=== PATIENT | female | born 2000 | race Caucasian/White ===

== ENCOUNTER 2022-01-05 21:25 | Outpatient (CLI) | payer OTHER ==
[~2022-01-05] VITALS: Ht 162.6 cm; Wt 71.8 kg
--- NOTE | 2022-01-05 21:35 | NUR ---
G1L0. 38-3. To LR 5 with spouse. Clean gown on. EFM and TOCO explained and applied. Pt states she was walking her dog tonight and was going up stairs in her hotel when her dog pulled her and she fell on her abdomen. Pt reports trying to not hit her abdomen so she fell to her knees but then hit her stomach on the stairs. Pt reports "feeling more sore on her left side of abdomen." Denies contractions, leaking of fluids or vaginal bleeding. Reports good movement. Pt states they are and in the process of moving and fighting with insurance so they have not gotten an OB in [place] yet. Pt reports she has her medical records in car. Requested FOB to get paperwork. Pt states her due date is 01/16/22. Denies any complications other then bleeding in her first trimester. Reports no BP issues, GBS -, not GDM. Plan of care explained to pt and spouse who verbalize their understanding. 2310: Pt continues to deny contractions at this time.
[2022-01-05 22:00] VITALS: BP 127/78; PULSE 81; TEMP 98.2
[2022-01-05 22:30] VITALS: BP 108/66; PULSE 74
[2022-01-05 23:00] VITALS: BP 111/67; PULSE 69
[2022-01-05 23:30] VITALS: BP 106/59; PULSE 76
--- NOTE | 2022-01-05 23:40 | NUR ---
reviews FHR strip at nurses station. Orders received to watch till 5140-4024. Pt educated on new plan of care received. Pt verbalizes her understanding.
--- NOTE | 2022-01-05 23:52 | NUR ---
reviews FHR strip. Okay to discharge home at 0015 per provider. 0023: Pt off monitors. Denies feeling contractions and pain. "Just sore." Pt to change clothes.
[2022-01-06] VITALS: BP 104/57; PULSE 70
[2022-01-06 00:23] VITALS: BP 104/59; PULSE 78
--- NOTE | 2022-01-06 00:40 | NUR ---
Discharge education given to pt and spouse who verbalize their understanding. Denies questions. Pt ambulatory off unit and home with spouse.
== END 2022-01-06 00:40 | disposition home or self-care (01) ==
LOC: LDRO 21:25
DX: O9A.219 Injury, poisoning and certain other consequences of external causes complicating pregnancy, unspecified trimester (principal); Z3A.00 Weeks of gestation of pregnancy not specified

== ENCOUNTER 2022-01-06 09:28 | Outpatient (CLI) | payer OTHER ==
[~2022-01-06] VITALS: Ht 162.6 cm; Wt 71.7 kg
--- NOTE | 2022-01-06 09:30 | NUR ---
0930 - PATIENT AMBULATORY TO [facility] FOR NST. PATIENT REPORTS A FALL LAST NIGHT. DENIES FALLING ON BELLY. PATIENT REPORTS GOOD MOVEMENT LAST NIGHT AND TODAY. DENIES LEAKING OF FLUID OR BLOODY SHOW. PATIENT DENIES FEELING ANY CONTRACTIONS. PATIENT IS NOT ESTABLISHED PATIENT OF [facility]. PATIENT STATES SHE JUST MOVED HERE FROM [place]. 6349 - PLAN OF CARE DISCUSSED. PATIENT ON MONITOR. CARE ONGOING.
--- NOTE | 2022-01-06 12:25 | NUR ---
Dr. Trent on the unit. FHR tracing reviewed. Ok for discharge home after pt receives her Rhogam.
--- NOTE | 2022-01-06 12:30 | NUR ---
Rhogam given, see EMAR for details. Discharge instructions reviewed with pt. Encouraged pt to follow up with and see an OB. Pt verbalized an understanding, agreed with the plan and states no questions or concerns at this time.
== END 2022-01-06 12:40 | disposition home or self-care (01) ==
LOC: LDRO 09:28
DX: O9A.213 Injury, poisoning and certain other consequences of external causes complicating pregnancy, third trimester (principal); Z3A.38 38 weeks gestation of pregnancy
CPT/HCPCS: J2791

== ENCOUNTER 2022-01-16 19:38 | Outpatient (CLI) | payer OTHER ==
--- NOTE | 2022-01-16 19:45 | NUR ---
G1 at 40 weeks arrives to unit with complaint of decreased movement. Pt reports feeling small movements over the last hour but she usually feels more movement in the evenings after meals. Pt denies contractions, vaginal bleeding, or leakage of fluid. Denies headache, blurry vision, or RUQ pain. Pt recently moved here from [place] and has not established care at [facility] but plans on delivering here. Pt had a fall around 38 weeks and was seen on our unit for extended monitoring, prenatals from [place] obtained at this time and available on unit. Uncomplicated . GBS -. Pt oriented to room, call light within reach, bed in low and locked position. Clean gown on. Palpated abdomen and able to feel baby move, patient reports feeling movement as well. US and toco explained and applied. Vitals obtained. Admission assessment completed. SVE closed/thick/high.
[2022-01-16 20:00] VITALS: BP 124/82; PULSE 89; TEMP 98.8
--- NOTE | 2022-01-16 20:30 | NUR ---
Category 1 FHR tracing obtained. Pt has felt baby move multiple times since arrival. Discharge instructions reviewed and patient and spouse, verbalized understanding. Reviewed return precautions. Pt seen ambulating off unit at 2039.
[2022-01-16] MEDS ORDERED: PRENATAL TABLET PO (21:59)
== END 2022-01-16 20:40 | disposition home or self-care (01) ==
LOC: LDRO 19:38 → LDR 19:45 → LDRO 20:40
DX: O36.8130 Decreased fetal movements, third trimester, not applicable or unspecified (principal); Z3A.40 40 weeks gestation of pregnancy
CPT/HCPCS: OP